=== PATIENT | male | born 1950 | race Caucasian/White ===

== ENCOUNTER 2017-06-29 22:54 | Inpatient (IN) ==
[2017-06-30] MEDS ORDERED: ONDANSETRON 4 MG/2 ML VIAL IV PRN (02:42)
[2017-06-30] MEDS ORDERED: GLUCAGON 1 MG VIAL IM PRN (02:42)
[2017-06-30] MEDS ORDERED: DEXTROSE 50% 25 GM/50 ML VIAL IV PRN (02:42)
[2017-06-30] MEDS ORDERED: ACETAMINOPHEN 325 MG TABLET PO PRN (02:42)
[2017-06-30 05:14] LABS: Basophils # 0.1 10*3/uL (0.0-0.2); Basophils % 0.6 % (0.0-0.8); Eosinophils # 0.3 10*3/uL (0.0-0.87); Eosinophils % 3.3 % (0.00-10.9); Hematocrit 41.5 VOL% (42.0-52.0); Hemoglobin 14.3 GM/DL (14.0-18.0); Immature Granulocytes % 0.4 %; Immature Granulocytes Absolute 0.04 #; Lymphocytes # 4.5 10*3/uL (1.4-4.0); Lymphocytes % 44.7 % (21.2-54.2); Mean Corpuscular HGB Conc 34.5 GM/DL (32-36); Mean Corpuscular Hemoglobin 33 PG (27-34); Mean Platelet Volume 11.8 FL (9.6-12.0); Monocytes # 0.9 10*3/uL (0.11-0.8); Monocytes % 8.7 % (1.7-12.7); Neutrophils # 4.3 10*3/uL (1.4-7.4); Neutrophils % 42.3 % (38.7-73.9); Platelet Count 164 T/CUMM (130-400); Red Blood Count 4.37 MC/CUMM (3.8-5.5); Red Cell Distribution Width 13.7 % (9.3-17.3); White Blood Count 10.1 T/CUMM (4-12)
[2017-06-30 05:54] LABS: Albumin 3.4 G/DL (3.4-5.0); Calcium 9.7 MG/DL (8.5-10.1); Osmolality,Calculated 280.4 MOS/KG (273-304); Potassium 3.9 MMOL/L (3.5-5.1); Total Protein 7.2 G/DL (6.4-8.3)
[2017-06-30] MEDS ORDERED: INSULIN LISPRO 100 UNIT/ML SUBCUT SCH (07:30)
[2017-06-30] MEDS ORDERED: PANTOPRAZOLE 40 MG TABLET PO SCH (09:00)
[2017-06-30] MEDS ORDERED: ENOXAPARIN 40 MG/0.4 ML SYRINGE SUBCUT SCH (09:00)
[2017-06-30] MEDS ORDERED: ASPIRIN CHEW 81 MG TABLET PO SCH (09:00)
[2017-06-30 10:03] VITALS: BP 161/71
== END 2017-06-30 10:50 | disposition home or self-care (01) | DRG 74 ==
LOC: N.CC 06-30 00:27
PROVIDERS: ADMIT Internal Medicine Geriatric Medicine; ATTEND Internal Medicine Geriatric Medicine

== ENCOUNTER 2018-07-25 21:28 | Inpatient (IN) ==
[2018-07-25] MEDS: dilTIAZem Drip 125 MG/125 ML PREMIX IV SCH ×2 (21:28→23:58)
[2018-07-25 22:08] LABS: Basophils # 0.1 10*3/uL (0.0-0.2); Basophils % 0.5 % (0.0-0.8); Eosinophils # 0.2 10*3/uL (0.0-0.87); Eosinophils % 1.6 % (0.00-10.9); Hematocrit 42.3 VOL% (42.0-52.0); Hemoglobin 14.3 GM/DL (14.0-18.0); Immature Granulocytes % 0.6 %; Immature Granulocytes Absolute 0.07 #; Lymphocytes # 3.2 10*3/uL (1.4-4.0); Lymphocytes % 28.1 % (21.2-54.2); Mean Corpuscular HGB Conc 33.8 GM/DL (32-36); Mean Corpuscular Hemoglobin 32 PG (27-34); Mean Platelet Volume 11.6 FL (9.6-12.0); Monocytes % 8.6 % (1.7-12.7); Neutrophils # 6.9 10*3/uL (1.4-7.4); Neutrophils % 60.6 % (38.7-73.9); Platelet Count 183 T/CUMM (130-400); Red Cell Distribution Width 13.9 % (9.3-17.3); White Blood Count 11.5 T/CUMM (4-12)
[2018-07-25 22:20] LABS: PT Patient Result 10.4 SECS
[2018-07-25 22:21] LABS: Albumin 3.6 G/DL (3.4-5.0); Bilirubin,Total 0.6 MG/DL (0.2-1.0); Calcium 9.2 MG/DL (8.5-10.1); Osmolality,Calculated 287.1 MOS/KG (273-304); Potassium 3.9 MMOL/L (3.5-5.1); Thyroid Stimulating Hormone 0.752 uIU/ml (0.358-3.74); Total Protein 8.2 G/DL (6.4-8.3)
[2018-07-25] MEDS ORDERED: ENOXAPARIN 80 MG/0.8 ML SYRINGE SUBCUT STA (22:30)
[2018-07-25 22:41] LABS: Barbiturates Screen,Urine Negative (Negative); Benzodiazepines Screen,Urine Negative (Negative); Cannabinoid Screen,Urine Negative (Negative); Opiate Screen,Urine Negative (Negative); Phencyclidine Screen,Urine Negative (Negative)
[2018-07-25] MEDS ORDERED: ONDANSETRON 4 MG/2 ML VIAL IV PRN (22:42)
[2018-07-25] MEDS ORDERED: CLOPIDOGREL 300 MG TABLET PO STA (22:46)
[2018-07-25] MEDS ORDERED: DEXTROSE 50% 25 GM/50 ML SYRINGE IV PRN (23:17)
[2018-07-25] MEDS ORDERED: GLUCAGON 1 MG VIAL IM PRN (23:17)
[2018-07-25 23:32] LABS: Risk Ratio 10.77; VLDL CHOLESTEROL 158.6 MG/DL
[2018-07-26] MEDS ORDERED: DEXTROSE 50% 25 GM/50 ML VIAL IV PRN (00:23)
[2018-07-26] MEDS ORDERED: GLUCAGON 1 MG VIAL IM PRN (00:23)
[2018-07-26 00:54] LABS: Basophils # 0.1 10*3/uL (0.0-0.2); Basophils % 0.6 % (0.0-0.8); Eosinophils # 0.2 10*3/uL (0.0-0.87); Eosinophils % 1.3 % (0.00-10.9); Hematocrit 41.9 VOL% (42.0-52.0); Hemoglobin 14.1 GM/DL (14.0-18.0); Immature Granulocytes % 0.8 %; Immature Granulocytes Absolute 0.09 #; Lymphocytes # 3.9 10*3/uL (1.4-4.0); Lymphocytes % 34.6 % (21.2-54.2); Mean Corpuscular HGB Conc 33.7 GM/DL (32-36); Mean Corpuscular Hemoglobin 32 PG (27-34); Mean Corpuscular Volume 94.2 FL (87-102); Mean Platelet Volume 11.4 FL (9.6-12.0); Monocytes # 1.1 10*3/uL (0.11-0.8); Monocytes % 9.7 % (1.7-12.7); Platelet Count 171 T/CUMM (130-400); Red Blood Count 4.45 MC/CUMM (3.8-5.5); Red Cell Distribution Width 13.9 % (9.3-17.3); White Blood Count 11.4 T/CUMM (4-12)
[2018-07-26 01:00] LABS: Albumin 3.4 G/DL (3.4-5.0); Bilirubin,Total 0.7 MG/DL (0.2-1.0); Calcium 9.3 MG/DL (8.5-10.1); Osmolality,Calculated 288.7 MOS/KG (273-304); Potassium 4.6 MMOL/L (3.5-5.1); Total Protein 8.1 G/DL (6.4-8.3)
[2018-07-26 01:36] LABS: Hepatitis A Ab IgM Result Negative (Negative); Hepatitis B Core IgM Quant < 0.05 Index; Hepatitis B Core IgM Result Negative (Negative); Hepatitis B Surface Ag Quant < 0.10 Index; Hepatitis B Surface Ag Result Negative (Negative); Hepatitis C Virus Ab Quant 0.03 Index; Hepatitis C Virus Ab Result Negative (Negative)
[2018-07-26] MEDS ORDERED: INSULIN LISPRO 100 UNIT/ML SUBCUT SCH (02:00)
[2018-07-26] MEDS: INSULIN LISPRO 100 UNIT/ML SUBCUT SCH ×4 (08:20→21:44)
[2018-07-26] MEDS: LOSARTAN 25 MG TABLET PO SCH (08:21)
[2018-07-26] MEDS: ISOSORBIDE MONONITRATE 30 MG TABLET PO SCH (08:21)
[2018-07-26] MEDS: ASPIRIN 325 MG TABLET PO SCH (08:21)
[2018-07-26] MEDS: DORZOLAMIDE/TIMOLOL OPH SOLN 10 ML BOTTLE BOTH EYES SCH ×2 (08:21→22:36)
[2018-07-26] MEDS: FUROSEMIDE 40 MG TABLET PO SCH (08:21)
[2018-07-26] MEDS: CHOLECALCIFEROL 1,000 UNIT TABLET PO SCH (08:21)
[2018-07-26] MEDS: clonazePAM 0.5 MG TABLET PO SCH (08:21)
[2018-07-26] MEDS: PANTOPRAZOLE 40 MG TABLET PO SCH (08:21)
[2018-07-26] MEDS: METOPROLOL SUCCINATE XL 25 MG TABLET PO SCH ×2 (08:21→21:43)
[2018-07-26] MEDS: ROSUVASTATIN 20 MG TABLET PO SCH (08:21)
[2018-07-26] MEDS: CLOPIDOGREL 75 MG TABLET PO SCH (08:21)
[2018-07-26] MEDS: THIAMINE 100 MG TABLET PO SCH (08:21)
[2018-07-26] MEDS ORDERED: DOXEPIN HCL PO SCH (09:00)
[2018-07-26] MEDS ORDERED: ENOXAPARIN 80 MG/0.8 ML SYRINGE SUBCUT SCH (11:00)
[2018-07-26 11:55] LABS: CKMB % 15.5 %
[2018-07-26] MEDS ORDERED: MAGNESIUM SULF RIDER 2 GM in PREMIX 1 EACH IV PRN (13:05)
[2018-07-26] MEDS ORDERED: POTASSIUM CHLORIDE RIDER 10 MEQ in PREMIX 1 EACH IV PRN (13:05)
[2018-07-26] MEDS: FOLIC ACID 1 MG TABLET PO SCH (13:09)
[2018-07-26] MEDS ORDERED: LORazepam 1 MG TABLET PO ONE (21:02)
[2018-07-26] MEDS: DOXEPIN 25 MG CAPSULE PO SCH (21:43)
[2018-07-26] MEDS: INSULIN GLARGINE 100 UNIT/ML SUBCUT SCH (21:44)
[2018-07-26] MEDS: GABAPENTIN 300 MG CAPSULE PO SCH (21:48)
[2018-07-26] MEDS: LATANOPROST 0.005% OPH SOLN 2.5 ML BOTTLE BOTH EYES SCH (22:36)
[2018-07-27] MEDS: INSULIN LISPRO 100 UNIT/ML SUBCUT SCH ×6 (00:53→20:29)
[2018-07-27 05:06] LABS: Basophils # 0.1 10*3/uL (0.0-0.2); Basophils % 0.8 % (0.0-0.8); Eosinophils # 0.3 10*3/uL (0.0-0.87); Eosinophils % 4.2 % (0.00-10.9); Hemoglobin 13.3 GM/DL (14.0-18.0); Immature Granulocytes % 0.3 %; Immature Granulocytes Absolute 0.02 #; Lymphocytes % 51.1 % (21.2-54.2); Mean Corpuscular HGB Conc 34.1 GM/DL (32-36); Mean Corpuscular Hemoglobin 32 PG (27-34); Mean Corpuscular Volume 93.1 FL (87-102); Mean Platelet Volume 11.3 FL (9.6-12.0); Monocytes # 0.9 10*3/uL (0.11-0.8); Monocytes % 11.3 % (1.7-12.7); Neutrophils # 2.5 10*3/uL (1.4-7.4); Neutrophils % 32.3 % (38.7-73.9); Platelet Count 149 T/CUMM (130-400); Red Blood Count 4.19 MC/CUMM (3.8-5.5); Red Cell Distribution Width 13.9 % (9.3-17.3); White Blood Count 7.8 T/CUMM (4-12)
[2018-07-27 05:25] LABS: Calcium 8.7 MG/DL (8.5-10.1); Osmolality,Calculated 281.5 MOS/KG (273-304); Potassium 3.6 MMOL/L (3.5-5.1)
[2018-07-27] MEDS ORDERED: SODIUM CHLORIDE 0.9% 1,000 ML IV SCH (06:00)
[2018-07-27 06:22] LABS: Eosinophils 5 % (0-10); Hypochromasia 1+; Lymphocytes 39 % (20-55); Platelet Estimate Normal; Segmented Neutrophils 52 % (50-85); Total Cells Counted 100
[2018-07-27] MEDS: ISOSORBIDE MONONITRATE 30 MG TABLET PO SCH (09:24)
[2018-07-27] MEDS: METOPROLOL SUCCINATE XL 25 MG TABLET PO SCH ×2 (09:24→20:29)
[2018-07-27] MEDS: LOSARTAN 25 MG TABLET PO SCH (09:26)
[2018-07-27] MEDS ORDERED: diphenhydrAMINE CAP 25 MG CAPSULE PO ONE (10:00)
[2018-07-27] MEDS ORDERED: DIAZEPAM 5 MG TABLET PO ONE (10:00)
[2018-07-27] MEDS ORDERED: HEPARIN/NACL 0.9% 2 UNITS/ML 1,000 ML IV ONE (11:03)
[2018-07-27] MEDS ORDERED: LIDOCAINE 1% 20 ML VIAL ONE (11:03)
[2018-07-27] MEDS ORDERED: MIDAZOLAM 2 MG/2 ML VIAL ONE ×2 (11:45→12:24)
[2018-07-27] MEDS ORDERED: HYDROmorphone 2 MG/1 ML VIAL ONE ×2 (11:45→12:24)
[2018-07-27] MEDS ORDERED: diphenhydrAMINE 50 MG/1 ML VIAL ONE (12:26)
[2018-07-27] MEDS ORDERED: BIVALIRUDIN 250 MG VIAL IV ONE (13:12)
[2018-07-27] MEDS ORDERED: CLOPIDOGREL 300 MG TABLET ONE (13:30)
[2018-07-27] MEDS ORDERED: ASPIRIN CHEW 81 MG TABLET PO ONE (13:30)
[2018-07-27] MEDS ORDERED: ceFAZolin 1,000 MG VIAL ONE (13:37)
[2018-07-27] MEDS ORDERED: ZALEPLON 5 MG CAPSULE PO PRN (13:40)
[2018-07-27] MEDS ORDERED: LORazepam 2 MG/1 ML VIAL ONE (14:05)
[2018-07-27] MEDS ORDERED: LORazepam 2 MG/1 ML VIAL IV ONE (14:10)
[2018-07-27] MEDS ORDERED: CLOPIDOGREL 300 MG TABLET PO ONE (14:11)
[2018-07-27] MEDS: CLOPIDOGREL 75 MG TABLET PO SCH (14:38)
[2018-07-27] MEDS: ASPIRIN 325 MG TABLET PO SCH (14:39)
[2018-07-27] MEDS ORDERED: HALOPERIDOL 5 MG/ML AMP IM PRN (15:00)
[2018-07-27] MEDS: HALOPERIDOL 5 MG/ML AMP IV PRN (15:13)
[2018-07-27] MEDS: DORZOLAMIDE/TIMOLOL OPH SOLN 10 ML BOTTLE BOTH EYES SCH ×2 (15:48→20:36)
[2018-07-27] MEDS: ROSUVASTATIN 20 MG TABLET PO SCH (15:48)
[2018-07-27] MEDS: clonazePAM 0.5 MG TABLET PO SCH (15:49)
[2018-07-27] MEDS: FOLIC ACID 1 MG TABLET PO SCH (15:49)
[2018-07-27] MEDS: THIAMINE 100 MG TABLET PO SCH (15:53)
[2018-07-27] MEDS: DOXEPIN 25 MG CAPSULE PO SCH ×2 (15:53→20:28)
[2018-07-27] MEDS: PANTOPRAZOLE 40 MG TABLET PO SCH (15:53)
[2018-07-27] MEDS: FUROSEMIDE 40 MG TABLET PO SCH (15:53)
[2018-07-27] MEDS: ASPIRIN CHEW 81 MG TABLET PO ONE ×2 (15:54→17:37)
[2018-07-27] MEDS: CHOLECALCIFEROL 1,000 UNIT TABLET PO SCH (15:54)
[2018-07-27] MEDS: LATANOPROST 0.005% OPH SOLN 2.5 ML BOTTLE BOTH EYES SCH (20:29)
[2018-07-27] MEDS: INSULIN GLARGINE 100 UNIT/ML SUBCUT SCH (20:29)
[2018-07-27] MEDS: GABAPENTIN 300 MG CAPSULE PO SCH (20:32)
[2018-07-27] MEDS ORDERED: ALBUTEROL/IPRATROPIUM 3 ML NEB RESP TX PRN (20:58)
[2018-07-28] MEDS: INSULIN LISPRO 100 UNIT/ML SUBCUT SCH ×7 (00:45→23:30)
[2018-07-28 00:55] LABS: Allen Test Positive
[2018-07-28 00:57] LABS: ABG Base Excess -1.3 MMOL/L (-2.5-2.5); ABG HCO3 23.3 MMOL/L (20-26); ABG Oxygen Saturation 96.8 % (95-100); ABG PCO2 40.8 MM HG (35-48); ABG PH 7.374 (7.35-7.45); ABG PO2 89.2 MM HG (80-95); ABG TCO2 21.1 MMOL/L (23-27)
[2018-07-28] MEDS: HALOPERIDOL 5 MG/ML AMP IV PRN (01:17)
[2018-07-28 04:30] LABS: Basophils % 0.4 % (0.0-0.8); Eosinophils # 0.4 10*3/uL (0.0-0.87); Eosinophils % 3.3 % (0.00-10.9); Hematocrit 34.7 VOL% (42.0-52.0); Hemoglobin 11.6 GM/DL (14.0-18.0); Immature Granulocytes % 0.4 %; Immature Granulocytes Absolute 0.05 #; Lymphocytes # 2.9 10*3/uL (1.4-4.0); Lymphocytes % 25.6 % (21.2-54.2); Mean Corpuscular HGB Conc 33.4 GM/DL (32-36); Mean Corpuscular Hemoglobin 31 PG (27-34); Mean Platelet Volume 11.7 FL (9.6-12.0); Monocytes # 0.9 10*3/uL (0.11-0.8); Monocytes % 7.8 % (1.7-12.7); Neutrophils # 7.1 10*3/uL (1.4-7.4); Neutrophils % 62.5 % (38.7-73.9); Platelet Count 138 T/CUMM (130-400); Red Blood Count 3.77 MC/CUMM (3.8-5.5); Red Cell Distribution Width 13.9 % (9.3-17.3); White Blood Count 11.4 T/CUMM (4-12)
[2018-07-28 04:53] LABS: Albumin 3.4 G/DL (3.4-5.0); Bilirubin,Total 1.2 MG/DL (0.2-1.0); Calcium 8.9 MG/DL (8.5-10.1); Osmolality,Calculated 278.4 MOS/KG (273-304); Potassium 3.7 MMOL/L (3.5-5.1); Total Protein 7.3 G/DL (6.4-8.3)
[2018-07-28 05:05] LABS: CKMB % 5.1 %; Calcium 8.8 MG/DL (8.5-10.1); Osmolality,Calculated 280.3 MOS/KG (273-304); Potassium 3.7 MMOL/L (3.5-5.1)
[2018-07-28 05:18] LABS: Troponin I 11.2 NG/ML (0.00-0.045)
[2018-07-28] MEDS ORDERED: NITROGLYCERIN SL 0.4 MG TABLET SL PRN (06:09)
[2018-07-28] MEDS ORDERED: ASPIRIN CHEW 81 MG TABLET PO ONE (06:09)
[2018-07-28] MEDS ORDERED: MORPHINE 4 MG/1 ML VIAL IV PRN (06:09)
[2018-07-28] MEDS ORDERED: DILTIAZEM 25 MG/5 ML VIAL IV ONE ×2 (06:16→06:18)
[2018-07-28] MEDS ORDERED: LORazepam 2 MG/1 ML VIAL IV ONE ×2 (06:26→06:47)
[2018-07-28] MEDS ORDERED: dilTIAZem Drip 125 MG/125 ML PREMIX IV SCH (06:30)
[2018-07-28] MEDS: MORPHINE 4 MG/1 ML VIAL IV SCH ×2 (06:35→11:43)
[2018-07-28 06:47] LABS: ABG Base Excess -4.2 MMOL/L (-2.5-2.5); ABG HCO3 20.9 MMOL/L (20-26); ABG Oxygen Saturation 95.3 % (95-100); ABG PCO2 36.9 MM HG (35-48); ABG PH 7.357 (7.35-7.45); ABG PO2 80.6 MM HG (80-95)
[2018-07-28] MEDS ORDERED: SUCCINYLCHOLINE 200 MG/10 ML VIAL ONE (06:56)
[2018-07-28] MEDS ORDERED: ETOMIDATE 20 MG/10 ML VIAL IV ONE (06:56)
[2018-07-28] MEDS ORDERED: PROPOFOL 1,000 MG/100 ML BOTTLE IV ONE (07:11)
[2018-07-28] MEDS: PROPOFOL 1,000 MG/100 ML BOTTLE IV SCH ×3 (07:25→21:04)
[2018-07-28] MEDS ORDERED: POTASSIUM CHLORIDE 20 MEQ TABLET PO PRN (07:43)
[2018-07-28] MEDS ORDERED: POTASSIUM CHLORIDE RIDER 10 MEQ in PREMIX 1 EACH IV PRN (07:43)
[2018-07-28] MEDS ORDERED: MAGNESIUM SULF RIDER 2 GM in PREMIX 1 EACH IV ONE (07:45)
[2018-07-28] MEDS ORDERED: FUROSEMIDE 40 MG/4 ML VIAL IV SCH (08:00)
[2018-07-28] MEDS ORDERED: NOREPINEPHRINE 8 MG in SODIUM CHLORIDE 0.9% 242 ML IV PRN (08:16)
[2018-07-28 08:23] LABS: Apearance,Urine Slightly Hazy (Clear); Bilirubin,Urine Negative (Negative); Blood, Urine Small mg/dL (Negative); Glucose,Urine (UA) Negative (Negative); Hyaline Casts,Urine 7 /LPF (0-3); Ketones,Urine Negative (Negative); Mucus,Urine Occasional /LPF (Occasional); Nitrite,Urine Negative (Negative); Protein,Urine 100 MG/DL; RBC,Urine 1 /HPF (0-4); Squamous Epithelial Cell,Urine Occasional /HPF (0-10); Urine Color Yellow (Yellow); Urine Specific Gravity 1.012 (1.001-1.035); Urine Urobilinogen < 2.0 EU/DL (0.2-1.0); WBC,Urine 5 /HPF (0-6)
[2018-07-28 08:25] LABS: ABG Base Excess -4.4 MMOL/L (-2.5-2.5); ABG HCO3 20.7 MMOL/L (20-26); ABG Oxygen Saturation 96.6 % (95-100); ABG PH 7.272 (7.35-7.45); ABG TCO2 20.5 MMOL/L (23-27)
[2018-07-28] MEDS: LORazepam INJ 40 MG in DEXTROSE 5% 30 ML IV PRN (08:35)
[2018-07-28 08:50] LABS: Barbiturates Screen,Urine Negative (Negative); Benzodiazepines Screen,Urine Positive (Negative); Cannabinoid Screen,Urine Negative (Negative); Opiate Screen,Urine Positive (Negative); Phencyclidine Screen,Urine Negative (Negative)
[2018-07-28] MEDS: PIPERACILLIN/TAZOBACTAM 3,375 MG in SODIUM CHLORIDE 0.9% 100 ML IV SCH ×3 (10:13→23:30)
[2018-07-28] MEDS: methylPREDNISolone SOD SUC 125 MG/2 ML VIAL IV SCH ×3 (10:14→23:29)
[2018-07-28] MEDS: THIAMINE 200 MG/2 ML VIAL IV SCH (10:14)
[2018-07-28] MEDS: ASPIRIN 325 MG TABLET PO SCH (10:15)
[2018-07-28] MEDS: PANTOPRAZOLE 40 MG TABLET PO SCH (10:15)
[2018-07-28] MEDS: CHOLECALCIFEROL 1,000 UNIT TABLET PO SCH (10:15)
[2018-07-28] MEDS: ROSUVASTATIN 20 MG TABLET PO SCH (10:15)
[2018-07-28] MEDS: CLOPIDOGREL 75 MG TABLET PO SCH (10:15)
[2018-07-28] MEDS: METOPROLOL TARTRATE 25 MG TABLET PO SCH ×2 (10:16→21:02)
[2018-07-28] MEDS: FOLIC ACID 1 MG TABLET PO SCH (10:16)
[2018-07-28] MEDS: DORZOLAMIDE/TIMOLOL OPH SOLN 10 ML BOTTLE BOTH EYES SCH ×2 (10:16→21:30)
[2018-07-28] MEDS: ISOSORBIDE MONONITRATE 30 MG TABLET PO SCH (10:16)
[2018-07-28] MEDS: FOLIC ACID INJ 1 MG in SYRINGE 1 EACH IV SCH (11:48)
[2018-07-28] MEDS: DILTIAZEM 30 MG TABLET PO SCH ×2 (15:14→21:02)
[2018-07-28] MEDS: FUROSEMIDE 20 MG/2 ML VIAL IV SCH (16:23)
[2018-07-28] MEDS: LATANOPROST 0.005% OPH SOLN 2.5 ML BOTTLE BOTH EYES SCH (21:02)
[2018-07-28] MEDS: ALBUTEROL/IPRATROPIUM 3 ML NEB RESP TX SCH (23:44)
[2018-07-29] MEDS: PROPOFOL 1,000 MG/100 ML BOTTLE IV SCH ×4 (03:07→19:15)
[2018-07-29 03:47] LABS: Basophils % 0.1 % (0.0-0.8); Hematocrit 33.4 VOL% (42.0-52.0); Hemoglobin 11.3 GM/DL (14.0-18.0); Immature Granulocytes % 0.5 %; Immature Granulocytes Absolute 0.05 #; Lymphocytes # 1.3 10*3/uL (1.4-4.0); Mean Corpuscular HGB Conc 33.8 GM/DL (32-36); Mean Corpuscular Hemoglobin 31 PG (27-34); Mean Corpuscular Volume 92.5 FL (87-102); Mean Platelet Volume 11.9 FL (9.6-12.0); Monocytes # 0.5 10*3/uL (0.11-0.8); Monocytes % 4.1 % (1.7-12.7); Neutrophils # 9.2 10*3/uL (1.4-7.4); Neutrophils % 83.3 % (38.7-73.9); Platelet Count 125 T/CUMM (130-400); Red Blood Count 3.61 MC/CUMM (3.8-5.5); Red Cell Distribution Width 13.9 % (9.3-17.3)
[2018-07-29 04:11] LABS: Albumin 2.9 G/DL (3.4-5.0); Calcium 8.7 MG/DL (8.5-10.1); Osmolality,Calculated 290.4 MOS/KG (273-304); Potassium 3.8 MMOL/L (3.5-5.1); Total Protein 6.9 G/DL (6.4-8.3)
[2018-07-29 04:12] LABS: Prealbumin 12.5 MG/DL (20-40)
[2018-07-29 04:23] LABS: Allen Test Positive; Pt O2 Delivery Device Ventilator
[2018-07-29 04:24] LABS: ABG Base Excess -1.7 MMOL/L (-2.5-2.5); ABG Oxygen Saturation 99.4 % (95-100); ABG PCO2 35.5 MM HG (35-48); ABG PH 7.409 (7.35-7.45); ABG TCO2 19.6 MMOL/L (23-27)
[2018-07-29] MEDS: INSULIN LISPRO 100 UNIT/ML SUBCUT SCH ×4 (04:54→16:48)
[2018-07-29] MEDS: LORazepam INJ 40 MG in DEXTROSE 5% 30 ML IV PRN ×2 (05:10→15:48)
[2018-07-29] MEDS: ALBUTEROL/IPRATROPIUM 3 ML NEB RESP TX SCH ×3 (07:51→19:11)
[2018-07-29] MEDS: FUROSEMIDE 20 MG/2 ML VIAL IV SCH ×2 (09:53→16:49)
[2018-07-29] MEDS: methylPREDNISolone SOD SUC 125 MG/2 ML VIAL IV SCH ×2 (09:55→16:52)
[2018-07-29] MEDS: PIPERACILLIN/TAZOBACTAM 3,375 MG in SODIUM CHLORIDE 0.9% 100 ML IV SCH ×2 (09:56→16:53)
[2018-07-29] MEDS: THIAMINE 200 MG/2 ML VIAL IV SCH (09:58)
[2018-07-29] MEDS: DORZOLAMIDE/TIMOLOL OPH SOLN 10 ML BOTTLE BOTH EYES SCH ×2 (09:58→22:43)
[2018-07-29] MEDS: FOLIC ACID INJ 1 MG in SYRINGE 1 EACH IV SCH (09:59)
[2018-07-29] MEDS: CHOLECALCIFEROL 1,000 UNIT TABLET PO SCH (10:17)
[2018-07-29] MEDS: PANTOPRAZOLE 40 MG TABLET PO SCH (10:18)
[2018-07-29] MEDS: FOLIC ACID 1 MG TABLET PO SCH (10:18)
[2018-07-29] MEDS: METOPROLOL TARTRATE 25 MG TABLET PO SCH ×2 (10:18→22:43)
[2018-07-29] MEDS: CLOPIDOGREL 75 MG TABLET PO SCH (10:18)
[2018-07-29] MEDS: ASPIRIN EC 81 MG TABLET PO SCH (10:18)
[2018-07-29] MEDS: DILTIAZEM 30 MG TABLET PO SCH ×3 (10:18→22:43)
[2018-07-29] MEDS ORDERED: INSULIN NPH 100 UNIT/ML SUBCUT SCH (13:00)
[2018-07-29] MEDS ORDERED: INSULIN REGULAR 100 UNIT/ML IV ONE (18:01)
[2018-07-29] MEDS: INSULIN REGULAR 100 UNIT/ML SUBCUT SCH (22:42)
[2018-07-29] MEDS: INSULIN GLARGINE 100 UNIT/ML SUBCUT SCH (22:43)
[2018-07-29] MEDS: LATANOPROST 0.005% OPH SOLN 2.5 ML BOTTLE BOTH EYES SCH (22:44)
[2018-07-30] MEDS: methylPREDNISolone SOD SUC 125 MG/2 ML VIAL IV SCH ×3 (00:28→18:47)
[2018-07-30] MEDS: PIPERACILLIN/TAZOBACTAM 3,375 MG in SODIUM CHLORIDE 0.9% 100 ML IV SCH ×3 (00:30→18:47)
[2018-07-30] MEDS: INSULIN REGULAR 100 UNIT/ML SUBCUT SCH ×6 (00:31→20:35)
[2018-07-30] MEDS: PROPOFOL 1,000 MG/100 ML BOTTLE IV SCH ×3 (02:03→23:54)
[2018-07-30 03:51] LABS: Allen Test Positive; Pt O2 Delivery Device Ventilator
[2018-07-30 03:54] LABS: ABG Base Excess 2.5 MMOL/L (-2.5-2.5); ABG HCO3 25.4 MMOL/L (20-26); ABG PCO2 34.2 MM HG (35-48); ABG PH 7.489 (7.35-7.45); ABG PO2 121.3 MM HG (80-95); ABG TCO2 26.5 MMOL/L (23-27)
[2018-07-30 03:55] LABS: ABG Oxygen Saturation 98.7 % (95-100)
[2018-07-30 04:40] LABS: Basophils % 0.1 % (0.0-0.8); Hematocrit 33.6 VOL% (42.0-52.0); Hemoglobin 11.2 GM/DL (14.0-18.0); Immature Granulocytes % 0.6 %; Lymphocytes # 1.3 10*3/uL (1.4-4.0); Lymphocytes % 8.5 % (21.2-54.2); Mean Corpuscular HGB Conc 33.3 GM/DL (32-36); Mean Corpuscular Hemoglobin 31 PG (27-34); Mean Corpuscular Volume 93.6 FL (87-102); Mean Platelet Volume 12.4 FL (9.6-12.0); Monocytes # 0.8 10*3/uL (0.11-0.8); Monocytes % 5.4 % (1.7-12.7); Neutrophils # 13.2 10*3/uL (1.4-7.4); Neutrophils % 85.4 % (38.7-73.9); Platelet Count 129 T/CUMM (130-400); Red Blood Count 3.59 MC/CUMM (3.8-5.5); Red Cell Distribution Width 14.1 % (9.3-17.3); White Blood Count 15.5 T/CUMM (4-12)
[2018-07-30 04:57] LABS: Albumin 2.8 G/DL (3.4-5.0); Bilirubin,Total 0.7 MG/DL (0.2-1.0); Calcium 8.9 MG/DL (8.5-10.1); Osmolality,Calculated 298.1 MOS/KG (273-304); Potassium 3.8 MMOL/L (3.5-5.1); Total Protein 7.2 G/DL (6.4-8.3)
[2018-07-30] MEDS: ALBUTEROL/IPRATROPIUM 3 ML NEB RESP TX SCH ×3 (08:00→19:16)
[2018-07-30] MEDS: FUROSEMIDE 20 MG/2 ML VIAL IV SCH ×2 (10:02→18:49)
[2018-07-30] MEDS: THIAMINE 200 MG/2 ML VIAL IV SCH (10:08)
[2018-07-30] MEDS: FOLIC ACID INJ 1 MG in SYRINGE 1 EACH IV SCH (10:09)
[2018-07-30] MEDS: PANTOPRAZOLE 40 MG TABLET PO SCH (10:19)
[2018-07-30] MEDS: FOLIC ACID 1 MG TABLET PO SCH (10:19)
[2018-07-30] MEDS: METOPROLOL TARTRATE 25 MG TABLET PO SCH ×2 (10:19→22:35)
[2018-07-30] MEDS: CLOPIDOGREL 75 MG TABLET PO SCH (10:19)
[2018-07-30] MEDS: ASPIRIN EC 81 MG TABLET PO SCH (10:19)
[2018-07-30] MEDS: CHOLECALCIFEROL 1,000 UNIT TABLET PO SCH (10:20)
[2018-07-30] MEDS: DILTIAZEM 30 MG TABLET PO SCH ×3 (10:21→22:34)
[2018-07-30] MEDS: DORZOLAMIDE/TIMOLOL OPH SOLN 10 ML BOTTLE BOTH EYES SCH ×2 (12:39→22:34)
[2018-07-30] MEDS: INSULIN GLARGINE 100 UNIT/ML SUBCUT SCH (22:34)
[2018-07-30] MEDS: LATANOPROST 0.005% OPH SOLN 2.5 ML BOTTLE BOTH EYES SCH (22:35)
[2018-07-31] MEDS: methylPREDNISolone SOD SUC 125 MG/2 ML VIAL IV SCH ×3 (01:22→16:26)
[2018-07-31] MEDS: INSULIN REGULAR 100 UNIT/ML SUBCUT SCH ×6 (01:22→19:42)
[2018-07-31] MEDS: PIPERACILLIN/TAZOBACTAM 3,375 MG in SODIUM CHLORIDE 0.9% 100 ML IV SCH ×3 (01:23→16:30)
[2018-07-31 03:32] LABS: Hematocrit 32.6 VOL% (42.0-52.0); Hemoglobin 10.6 GM/DL (14.0-18.0); Immature Granulocytes % 0.9 %; Immature Granulocytes Absolute 0.11 #; Lymphocytes # 1.2 10*3/uL (1.4-4.0); Lymphocytes % 9.1 % (21.2-54.2); Mean Corpuscular HGB Conc 32.5 GM/DL (32-36); Mean Corpuscular Hemoglobin 31 PG (27-34); Mean Corpuscular Volume 95.6 FL (87-102); Mean Platelet Volume 12.2 FL (9.6-12.0); Monocytes # 0.7 10*3/uL (0.11-0.8); Monocytes % 5.1 % (1.7-12.7); Neutrophils # 10.7 10*3/uL (1.4-7.4); Neutrophils % 84.9 % (38.7-73.9); Platelet Count 134 T/CUMM (130-400); Red Blood Count 3.41 MC/CUMM (3.8-5.5); Red Cell Distribution Width 14.4 % (9.3-17.3); White Blood Count 12.6 T/CUMM (4-12)
[2018-07-31 03:38] LABS: Allen Test Positive; Pt O2 Delivery Device Ventilator
[2018-07-31 03:39] LABS: ABG Base Excess 5.6 MMOL/L (-2.5-2.5); ABG HCO3 29.5 MMOL/L (20-26); ABG Oxygen Saturation 96.2 % (95-100); ABG PCO2 39.8 MM HG (35-48); ABG PH 7.479 (7.35-7.45); ABG TCO2 26.2 MMOL/L (23-27)
[2018-07-31 03:58] LABS: Calcium 8.7 MG/DL (8.5-10.1); Osmolality,Calculated 300.1 MOS/KG (273-304); Potassium 3.7 MMOL/L (3.5-5.1)
[2018-07-31] MEDS: PROPOFOL 1,000 MG/100 ML BOTTLE IV SCH ×5 (06:38→23:36)
[2018-07-31] MEDS: ALBUTEROL/IPRATROPIUM 3 ML NEB RESP TX SCH ×3 (07:22→19:58)
[2018-07-31] MEDS: LORazepam INJ 40 MG in DEXTROSE 5% 30 ML IV PRN (07:51)
[2018-07-31] MEDS: HALOPERIDOL 5 MG/ML AMP IV SCH ×3 (07:52→19:30)
[2018-07-31] MEDS: FUROSEMIDE 20 MG/2 ML VIAL IV SCH ×2 (07:57→16:28)
[2018-07-31] MEDS: ASPIRIN EC 81 MG TABLET PO SCH (09:06)
[2018-07-31] MEDS: FOLIC ACID 1 MG TABLET PO SCH (09:06)
[2018-07-31] MEDS: METOPROLOL TARTRATE 25 MG TABLET PO SCH ×2 (09:06→20:17)
[2018-07-31] MEDS: CHOLECALCIFEROL 1,000 UNIT TABLET PO SCH (09:08)
[2018-07-31] MEDS: DILTIAZEM 30 MG TABLET PO SCH ×3 (09:08→20:17)
[2018-07-31] MEDS: PANTOPRAZOLE 40 MG TABLET PO SCH (09:08)
[2018-07-31] MEDS: CLOPIDOGREL 75 MG TABLET PO SCH (09:08)
[2018-07-31] MEDS: DORZOLAMIDE/TIMOLOL OPH SOLN 10 ML BOTTLE BOTH EYES SCH ×3 (09:08→20:22)
[2018-07-31] MEDS: FOLIC ACID INJ 1 MG in SYRINGE 1 EACH IV SCH (09:09)
[2018-07-31] MEDS: THIAMINE 200 MG/2 ML VIAL IV SCH (09:10)
[2018-07-31] MEDS: LATANOPROST 0.005% OPH SOLN 2.5 ML BOTTLE BOTH EYES SCH (20:19)
[2018-07-31] MEDS: INSULIN GLARGINE 100 UNIT/ML SUBCUT SCH (21:49)
[2018-08-01] MEDS: MIDAZOLAM 100 MG in SODIUM CHLORIDE 0.9% 80 ML IV PRN (01:20)
[2018-08-01] MEDS: INSULIN REGULAR 100 UNIT/ML SUBCUT SCH ×6 (01:30→19:55)
[2018-08-01] MEDS: methylPREDNISolone SOD SUC 125 MG/2 ML VIAL IV SCH ×3 (01:30→16:48)
[2018-08-01] MEDS: HALOPERIDOL 5 MG/ML AMP IV SCH ×4 (01:31→19:56)
[2018-08-01] MEDS: PIPERACILLIN/TAZOBACTAM 3,375 MG in SODIUM CHLORIDE 0.9% 100 ML IV SCH ×3 (01:31→16:48)
[2018-08-01 03:45] LABS: ABG HCO3 31.8 MMOL/L (20-26); ABG Oxygen Saturation 96.7 % (95-100); ABG PCO2 43.6 MM HG (35-48); ABG PH 7.482 (7.35-7.45); ABG TCO2 27.5 MMOL/L (23-27); Allen Test Positive; Pt O2 Delivery Device Ventilator
[2018-08-01 04:04] LABS: Basophils % 0.1 % (0.0-0.8); Hemoglobin 11.3 GM/DL (14.0-18.0); Immature Granulocytes % 2.2 %; Immature Granulocytes Absolute 0.25 #; Lymphocytes # 1.2 10*3/uL (1.4-4.0); Lymphocytes % 10.1 % (21.2-54.2); Mean Corpuscular HGB Conc 32.3 GM/DL (32-36); Mean Corpuscular Hemoglobin 31 PG (27-34); Mean Corpuscular Volume 96.2 FL (87-102); Monocytes # 1.1 10*3/uL (0.11-0.8); Monocytes % 9.5 % (1.7-12.7); Neutrophils # 8.9 10*3/uL (1.4-7.4); Neutrophils % 78.1 % (38.7-73.9); Platelet Count 154 T/CUMM (130-400); Red Blood Count 3.64 MC/CUMM (3.8-5.5); Red Cell Distribution Width 14.2 % (9.3-17.3); White Blood Count 11.3 T/CUMM (4-12)
[2018-08-01 04:20] LABS: Calcium 8.6 MG/DL (8.5-10.1); Osmolality,Calculated 307.6 MOS/KG (273-304); Potassium 3.9 MMOL/L (3.5-5.1)
[2018-08-01 04:24] LABS: Prealbumin 22.4 MG/DL (20-40)
[2018-08-01] MEDS: ALBUTEROL/IPRATROPIUM 3 ML NEB RESP TX SCH ×3 (06:59→20:02)
[2018-08-01] MEDS: THIAMINE 200 MG/2 ML VIAL IV SCH (08:10)
[2018-08-01] MEDS: FUROSEMIDE 20 MG/2 ML VIAL IV SCH ×2 (08:13→16:47)
[2018-08-01] MEDS: LOSARTAN 50 MG TABLET PO SCH (08:24)
[2018-08-01] MEDS: CHOLECALCIFEROL 1,000 UNIT TABLET PO SCH (08:24)
[2018-08-01] MEDS: ASPIRIN EC 81 MG TABLET PO SCH (08:24)
[2018-08-01] MEDS: FOLIC ACID 1 MG TABLET PO SCH (08:25)
[2018-08-01] MEDS: CLOPIDOGREL 75 MG TABLET PO SCH (08:25)
[2018-08-01] MEDS: DILTIAZEM 30 MG TABLET PO SCH ×3 (08:25→21:00)
[2018-08-01] MEDS: METOPROLOL TARTRATE 25 MG TABLET PO SCH ×2 (08:25→21:07)
[2018-08-01] MEDS: POTASSIUM CHLORIDE 20 MEQ/15 ML UDCUP PER TUBE PRN (08:32)
[2018-08-01] MEDS: FOLIC ACID INJ 1 MG in SYRINGE 1 EACH IV SCH (08:33)
[2018-08-01] MEDS: PANTOPRAZOLE 40 MG TABLET PO SCH (08:43)
[2018-08-01] MEDS ORDERED: MIDAZOLAM 2 MG/2 ML VIAL ONE (09:00)
[2018-08-01] MEDS: PROPOFOL 1,000 MG/100 ML BOTTLE IV SCH ×2 (11:26→22:26)
[2018-08-01] MEDS: DORZOLAMIDE/TIMOLOL OPH SOLN 10 ML BOTTLE BOTH EYES SCH ×2 (11:27→21:16)
[2018-08-01] MEDS: LANSOPRAZOLE ODT 30 MG TABLET PER TUBE SCH (11:45)
[2018-08-01] MEDS: LATANOPROST 0.005% OPH SOLN 2.5 ML BOTTLE BOTH EYES SCH (21:00)
[2018-08-01] MEDS: INSULIN GLARGINE 100 UNIT/ML SUBCUT SCH (21:01)
[2018-08-02] MEDS: INSULIN REGULAR 100 UNIT/ML SUBCUT SCH ×6 (00:41→19:59)
[2018-08-02] MEDS: methylPREDNISolone SOD SUC 125 MG/2 ML VIAL IV SCH ×3 (00:41→20:20)
[2018-08-02] MEDS: PIPERACILLIN/TAZOBACTAM 3,375 MG in SODIUM CHLORIDE 0.9% 100 ML IV SCH ×3 (00:42→15:50)
[2018-08-02] MEDS: HALOPERIDOL 5 MG/ML AMP IV SCH ×4 (00:48→19:59)
[2018-08-02] MEDS: MIDAZOLAM 100 MG in SODIUM CHLORIDE 0.9% 80 ML IV PRN (02:44)
[2018-08-02 04:58] LABS: ABG Base Excess 7.1 MMOL/L (-2.5-2.5); ABG HCO3 30.9 MMOL/L (20-26); ABG Oxygen Saturation 98.2 % (95-100); ABG PCO2 43.6 MM HG (35-48); ABG TCO2 27.5 MMOL/L (23-27)
[2018-08-02 05:08] LABS: Basophils % 0.1 % (0.0-0.8); Hematocrit 37.7 VOL% (42.0-52.0); Hemoglobin 12.3 GM/DL (14.0-18.0); Immature Granulocytes % 1.4 %; Immature Granulocytes Absolute 0.16 #; Lymphocytes # 1.1 10*3/uL (1.4-4.0); Lymphocytes % 9.2 % (21.2-54.2); Mean Corpuscular HGB Conc 32.6 GM/DL (32-36); Mean Corpuscular Hemoglobin 31 PG (27-34); Mean Corpuscular Volume 95.7 FL (87-102); Mean Platelet Volume 11.9 FL (9.6-12.0); Monocytes # 0.8 10*3/uL (0.11-0.8); Monocytes % 7.3 % (1.7-12.7); Neutrophils # 9.4 10*3/uL (1.4-7.4); Platelet Count 154 T/CUMM (130-400); Red Blood Count 3.94 MC/CUMM (3.8-5.5); Red Cell Distribution Width 14.1 % (9.3-17.3); White Blood Count 11.5 T/CUMM (4-12)
[2018-08-02 05:26] LABS: Calcium 8.8 MG/DL (8.5-10.1); Osmolality,Calculated 312.7 MOS/KG (273-304); Potassium 3.7 MMOL/L (3.5-5.1)
[2018-08-02] MEDS: ALBUTEROL/IPRATROPIUM 3 ML NEB RESP TX SCH ×3 (07:11→19:44)
[2018-08-02] MEDS: THIAMINE 200 MG/2 ML VIAL IV SCH (08:20)
[2018-08-02] MEDS: FUROSEMIDE 20 MG/2 ML VIAL IV SCH (08:25)
[2018-08-02] MEDS: LOSARTAN 50 MG TABLET PO SCH (08:30)
[2018-08-02] MEDS: POTASSIUM CHLORIDE 20 MEQ/15 ML UDCUP PER TUBE PRN (08:30)
[2018-08-02] MEDS: METOPROLOL TARTRATE 25 MG TABLET PO SCH ×2 (08:30→20:21)
[2018-08-02] MEDS: LANSOPRAZOLE ODT 30 MG TABLET PER TUBE SCH (08:31)
[2018-08-02] MEDS: FOLIC ACID 1 MG TABLET PER TUBE SCH (08:31)
[2018-08-02] MEDS: CLOPIDOGREL 75 MG TABLET PO SCH (08:31)
[2018-08-02] MEDS: DILTIAZEM 30 MG TABLET PO SCH ×3 (08:31→20:20)
[2018-08-02] MEDS: ASPIRIN CHEW 81 MG TABLET PO SCH (08:34)
[2018-08-02] MEDS: CHOLECALCIFEROL 1,000 UNIT TABLET PO SCH (08:35)
[2018-08-02] MEDS: DORZOLAMIDE/TIMOLOL OPH SOLN 10 ML BOTTLE BOTH EYES SCH ×2 (08:45→20:21)
[2018-08-02] MEDS: glipiZIDE 10 MG TABLET PER TUBE SCH ×2 (10:01→15:50)
[2018-08-02] MEDS: PROPOFOL 1,000 MG/100 ML BOTTLE IV SCH ×2 (11:17→22:26)
[2018-08-02] MEDS: INSULIN GLARGINE 100 UNIT/ML SUBCUT SCH (20:30)
[2018-08-02] MEDS: LATANOPROST 0.005% OPH SOLN 2.5 ML BOTTLE BOTH EYES SCH (21:02)
[2018-08-03] MEDS: INSULIN REGULAR 100 UNIT/ML SUBCUT SCH ×6 (01:07→21:33)
[2018-08-03] MEDS: PIPERACILLIN/TAZOBACTAM 3,375 MG in SODIUM CHLORIDE 0.9% 100 ML IV SCH ×3 (01:08→16:09)
[2018-08-03] MEDS: HALOPERIDOL 5 MG/ML AMP IV SCH ×4 (01:09→21:33)
[2018-08-03 04:02] LABS: ABG Base Excess 7.5 MMOL/L (-2.5-2.5); ABG HCO3 31.3 MMOL/L (20-26); ABG PCO2 42.2 MM HG (35-48); ABG PH 7.485 (7.35-7.45); ABG TCO2 27.1 MMOL/L (23-27)
[2018-08-03 05:13] LABS: Basophils % 0.2 % (0.0-0.8); Hematocrit 41.5 VOL% (42.0-52.0); Hemoglobin 13.6 GM/DL (14.0-18.0); Immature Granulocytes Absolute 0.45 #; Lymphocytes # 1.6 10*3/uL (1.4-4.0); Lymphocytes % 6.9 % (21.2-54.2); Mean Corpuscular HGB Conc 32.8 GM/DL (32-36); Mean Corpuscular Hemoglobin 32 PG (27-34); Mean Corpuscular Volume 96.3 FL (87-102); Mean Platelet Volume 12.3 FL (9.6-12.0); Monocytes # 2.2 10*3/uL (0.11-0.8); Monocytes % 9.7 % (1.7-12.7); NRBC # 0.02 10*3/uL; Neutrophils # 18.4 10*3/uL (1.4-7.4); Neutrophils % 81.2 % (38.7-73.9); Platelet Count 185 T/CUMM (130-400); Red Blood Count 4.31 MC/CUMM (3.8-5.5); Red Cell Distribution Width 13.8 % (9.3-17.3); White Blood Count 22.6 T/CUMM (4-12)
[2018-08-03 05:33] LABS: Lymphocytes 11 % (20-55); Platelet Estimate Normal; Segmented Neutrophils 84 % (50-85); Total Cells Counted 100
[2018-08-03 05:34] LABS: Anisocytosis Slight; Macrocytosis Slight
[2018-08-03 05:39] LABS: Calcium 8.8 MG/DL (8.5-10.1); Osmolality,Calculated 312.4 MOS/KG (273-304)
[2018-08-03] MEDS: ALBUTEROL/IPRATROPIUM 3 ML NEB RESP TX SCH ×3 (07:05→19:02)
[2018-08-03] MEDS ORDERED: AMIODARONE INJ 450 MG in DEXTROSE 5% 241 ML IV SCH (07:30)
[2018-08-03] MEDS ORDERED: AMIODARONE INJ 150 MG in DEXTROSE 5% 100 ML IV ONE (07:30)
[2018-08-03] MEDS: ASPIRIN CHEW 81 MG TABLET PO SCH (08:04)
[2018-08-03] MEDS: METOPROLOL TARTRATE 25 MG TABLET PO SCH ×2 (08:05→20:21)
[2018-08-03] MEDS: CLOPIDOGREL 75 MG TABLET PO SCH (08:05)
[2018-08-03] MEDS: CHOLECALCIFEROL 1,000 UNIT TABLET PO SCH (08:05)
[2018-08-03] MEDS: LANSOPRAZOLE ODT 30 MG TABLET PER TUBE SCH (08:05)
[2018-08-03] MEDS: DILTIAZEM 30 MG TABLET PO SCH ×3 (08:05→20:21)
[2018-08-03] MEDS: FOLIC ACID 1 MG TABLET PER TUBE SCH (08:05)
[2018-08-03] MEDS: LOSARTAN 50 MG TABLET PO SCH (08:05)
[2018-08-03] MEDS: glipiZIDE 10 MG TABLET PER TUBE SCH ×2 (08:05→16:09)
[2018-08-03] MEDS: methylPREDNISolone SOD SUC 125 MG/2 ML VIAL IV SCH ×2 (08:08→20:20)
[2018-08-03] MEDS: THIAMINE 200 MG/2 ML VIAL IV SCH (08:15)
[2018-08-03] MEDS: FUROSEMIDE 20 MG/2 ML VIAL IV SCH (08:18)
[2018-08-03] MEDS: dilTIAZem Drip 125 MG/125 ML PREMIX IV SCH (08:21)
[2018-08-03] MEDS: PROPOFOL 1,000 MG/100 ML BOTTLE IV SCH (08:26)
[2018-08-03] MEDS: DORZOLAMIDE/TIMOLOL OPH SOLN 10 ML BOTTLE BOTH EYES SCH ×2 (08:27→20:21)
[2018-08-03] MEDS: ENOXAPARIN 40 MG/0.4 ML SYRINGE SUBCUT SCH (09:23)
[2018-08-03 11:35] LABS: ABG Base Excess 9.6 MMOL/L (-2.5-2.5); ABG HCO3 34.4 MMOL/L (20-26); ABG Oxygen Saturation 97.3 % (95-100); ABG PCO2 46.3 MM HG (35-48); ABG PH 7.489 (7.35-7.45); ABG PO2 95.1 MM HG (80-95); ABG TCO2 35.8 MMOL/L (23-27)
[2018-08-03 13:12] LABS: ABG Base Excess 9.1 MMOL/L (-2.5-2.5); ABG HCO3 32.8 MMOL/L (20-26); ABG Oxygen Saturation 96.8 % (95-100); ABG PCO2 38.4 MM HG (35-48); ABG PH 7.534 (7.35-7.45); ABG PO2 80.2 MM HG (80-95); ABG TCO2 27.4 MMOL/L (23-27)
[2018-08-03] MEDS: AMIODARONE INJ 450 MG in DEXTROSE 5% 241 ML IV SCH (16:03)
[2018-08-03] MEDS: INSULIN GLARGINE 100 UNIT/ML SUBCUT SCH (20:21)
[2018-08-03] MEDS: LATANOPROST 0.005% OPH SOLN 2.5 ML BOTTLE BOTH EYES SCH (20:21)
[2018-08-04] MEDS: PIPERACILLIN/TAZOBACTAM 3,375 MG in SODIUM CHLORIDE 0.9% 100 ML IV SCH ×3 (00:05→15:53)
[2018-08-04] MEDS: INSULIN REGULAR 100 UNIT/ML SUBCUT SCH ×6 (00:12→23:11)
[2018-08-04] MEDS: HALOPERIDOL 5 MG/ML AMP IV SCH ×4 (02:15→23:10)
[2018-08-04] MEDS: dilTIAZem Drip 125 MG/125 ML PREMIX IV SCH (02:17)
[2018-08-04 03:49] LABS: ABG Base Excess 7.1 MMOL/L (-2.5-2.5); ABG HCO3 30.8 MMOL/L (20-26); ABG Oxygen Saturation 95.7 % (95-100); ABG PCO2 39.9 MM HG (35-48); ABG PH 7.497 (7.35-7.45); ABG PO2 77.5 MM HG (80-95); ABG TCO2 26.2 MMOL/L (23-27); Allen Test Positive
[2018-08-04 04:06] LABS: Basophils % 0.1 % (0.0-0.8); Hematocrit 42.4 VOL% (42.0-52.0); Hemoglobin 13.7 GM/DL (14.0-18.0); Immature Granulocytes % 1.7 %; Immature Granulocytes Absolute 0.46 #; Lymphocytes # 1.4 10*3/uL (1.4-4.0); Lymphocytes % 5.2 % (21.2-54.2); Mean Corpuscular HGB Conc 32.3 GM/DL (32-36); Mean Corpuscular Hemoglobin 31 PG (27-34); Mean Corpuscular Volume 95.7 FL (87-102); Mean Platelet Volume 12.5 FL (9.6-12.0); Monocytes # 2.2 10*3/uL (0.11-0.8); Neutrophils # 22.9 10*3/uL (1.4-7.4); Platelet Count 194 T/CUMM (130-400); Red Blood Count 4.43 MC/CUMM (3.8-5.5); White Blood Count 26.9 T/CUMM (4-12)
[2018-08-04 04:12] LABS: Calcium 8.5 MG/DL (8.5-10.1); Osmolality,Calculated 304.7 MOS/KG (273-304); Potassium 3.8 MMOL/L (3.5-5.1)
[2018-08-04 04:23] LABS: Prealbumin 29.9 MG/DL (20-40)
[2018-08-04 04:55] LABS: Hypochromasia 1+
[2018-08-04 04:56] LABS: Macrocytosis Slight; Platelet Estimate Adequate
[2018-08-04] MEDS: ALBUTEROL/IPRATROPIUM 3 ML NEB RESP TX SCH ×3 (07:28→20:16)
[2018-08-04] MEDS: PROPOFOL 1,000 MG/100 ML BOTTLE IV SCH (07:32)
[2018-08-04] MEDS: AMIODARONE INJ 450 MG in DEXTROSE 5% 241 ML IV SCH ×2 (07:32→20:05)
[2018-08-04] MEDS: methylPREDNISolone SOD SUC 125 MG/2 ML VIAL IV SCH ×2 (08:48→23:10)
[2018-08-04] MEDS: glipiZIDE 10 MG TABLET PER TUBE SCH ×2 (08:48→15:53)
[2018-08-04] MEDS: ASPIRIN CHEW 81 MG TABLET PO SCH (08:50)
[2018-08-04] MEDS: AMIODARONE 200 MG TABLET PO SCH ×2 (08:51→23:11)
[2018-08-04] MEDS: ENOXAPARIN 40 MG/0.4 ML SYRINGE SUBCUT SCH (08:51)
[2018-08-04] MEDS: DORZOLAMIDE/TIMOLOL OPH SOLN 10 ML BOTTLE BOTH EYES SCH ×2 (08:51→23:12)
[2018-08-04] MEDS: LOSARTAN 50 MG TABLET PO SCH ×2 (08:51→23:11)
[2018-08-04] MEDS: FOLIC ACID 1 MG TABLET PER TUBE SCH (08:51)
[2018-08-04] MEDS: METOPROLOL TARTRATE 25 MG TABLET PO SCH ×2 (08:51→23:11)
[2018-08-04] MEDS: LANSOPRAZOLE ODT 30 MG TABLET PER TUBE SCH (08:52)
[2018-08-04] MEDS: FUROSEMIDE 20 MG/2 ML VIAL IV SCH (08:52)
[2018-08-04] MEDS: CLOPIDOGREL 75 MG TABLET PO SCH (08:52)
[2018-08-04] MEDS: CHOLECALCIFEROL 1,000 UNIT TABLET PO SCH (09:02)
[2018-08-04] MEDS: THIAMINE 200 MG/2 ML VIAL IV SCH (09:03)
[2018-08-04] MEDS ORDERED: AMIODARONE INJ 150 MG in DEXTROSE 5% 100 ML IV ONE (18:58)
[2018-08-04] MEDS ORDERED: AMIODARONE 150 MG/3 ML VIAL ONE (19:00)
[2018-08-04] MEDS: INSULIN GLARGINE 100 UNIT/ML SUBCUT SCH (23:12)
[2018-08-04] MEDS: LATANOPROST 0.005% OPH SOLN 2.5 ML BOTTLE BOTH EYES SCH (23:12)
[2018-08-05] MEDS: INSULIN REGULAR 100 UNIT/ML SUBCUT SCH ×6 (01:50→20:42)
[2018-08-05] MEDS: HALOPERIDOL 5 MG/ML AMP IV SCH ×4 (01:50→20:42)
[2018-08-05] MEDS: PIPERACILLIN/TAZOBACTAM 3,375 MG in SODIUM CHLORIDE 0.9% 100 ML IV SCH ×3 (01:57→16:47)
[2018-08-05] MEDS: ALBUTEROL/IPRATROPIUM 3 ML NEB RESP TX SCH ×3 (07:09→19:07)
[2018-08-05 07:14] LABS: Basophils % 0.1 % (0.0-0.8); Hematocrit 39.8 VOL% (42.0-52.0); Hemoglobin 13.3 GM/DL (14.0-18.0); Immature Granulocytes % 1.9 %; Immature Granulocytes Absolute 0.35 #; Lymphocytes % 10.4 % (21.2-54.2); Mean Corpuscular HGB Conc 33.4 GM/DL (32-36); Mean Corpuscular Hemoglobin 31 PG (27-34); Mean Corpuscular Volume 93.6 FL (87-102); Mean Platelet Volume 12.5 FL (9.6-12.0); Monocytes # 1.3 10*3/uL (0.11-0.8); Monocytes % 7.1 % (1.7-12.7); Neutrophils # 15.1 10*3/uL (1.4-7.4); Neutrophils % 80.5 % (38.7-73.9); Platelet Count 163 T/CUMM (130-400); Red Blood Count 4.25 MC/CUMM (3.8-5.5); Red Cell Distribution Width 13.2 % (9.3-17.3); White Blood Count 18.8 T/CUMM (4-12)
[2018-08-05 07:19] LABS: Albumin 2.7 G/DL (3.4-5.0); Bilirubin,Total 1.7 MG/DL (0.2-1.0); Calcium 8.6 MG/DL (8.5-10.1); Osmolality,Calculated 284.5 MOS/KG (273-304); Potassium 3.8 MMOL/L (3.5-5.1); Total Protein 6.5 G/DL (6.4-8.3)
[2018-08-05] MEDS: methylPREDNISolone SOD SUC 125 MG/2 ML VIAL IV SCH ×2 (08:18→20:40)
[2018-08-05] MEDS: THIAMINE 200 MG/2 ML VIAL IV SCH (08:19)
[2018-08-05] MEDS: FUROSEMIDE 20 MG/2 ML VIAL IV SCH (08:20)
[2018-08-05] MEDS: DORZOLAMIDE/TIMOLOL OPH SOLN 10 ML BOTTLE BOTH EYES SCH ×2 (08:24→20:44)
[2018-08-05] MEDS: AMIODARONE 200 MG TABLET PO SCH ×2 (09:23→20:44)
[2018-08-05] MEDS: CLOPIDOGREL 75 MG TABLET PO SCH (09:23)
[2018-08-05] MEDS: LANSOPRAZOLE ODT 30 MG TABLET PER TUBE SCH (09:23)
[2018-08-05] MEDS: CHOLECALCIFEROL 1,000 UNIT TABLET PO SCH (09:23)
[2018-08-05] MEDS: ASPIRIN CHEW 81 MG TABLET PO SCH (09:23)
[2018-08-05] MEDS: FOLIC ACID 1 MG TABLET PER TUBE SCH (09:24)
[2018-08-05] MEDS: glipiZIDE 10 MG TABLET PER TUBE SCH ×2 (09:24→17:48)
[2018-08-05] MEDS: ROSUVASTATIN 20 MG TABLET PO SCH (09:24)
[2018-08-05] MEDS: ENOXAPARIN 40 MG/0.4 ML SYRINGE SUBCUT SCH (09:28)
[2018-08-05] MEDS: METOPROLOL TARTRATE 25 MG TABLET PO SCH ×2 (09:28→20:44)
[2018-08-05] MEDS: LOSARTAN 50 MG TABLET PO SCH ×2 (09:31→20:44)
[2018-08-05] MEDS: INSULIN GLARGINE 100 UNIT/ML SUBCUT SCH (20:43)
[2018-08-05] MEDS: LATANOPROST 0.005% OPH SOLN 2.5 ML BOTTLE BOTH EYES SCH (20:44)
[2018-08-06] MEDS: PIPERACILLIN/TAZOBACTAM 3,375 MG in SODIUM CHLORIDE 0.9% 100 ML IV SCH ×3 (00:13→16:12)
[2018-08-06] MEDS: INSULIN REGULAR 100 UNIT/ML SUBCUT SCH ×6 (00:14→19:38)
[2018-08-06] MEDS: HALOPERIDOL 5 MG/ML AMP IV SCH ×4 (01:08→19:37)
[2018-08-06 06:28] LABS: Basophils % 0.1 % (0.0-0.8); Hematocrit 36.2 VOL% (42.0-52.0); Hemoglobin 12.3 GM/DL (14.0-18.0); Immature Granulocytes % 1.6 %; Immature Granulocytes Absolute 0.29 #; Lymphocytes # 1.4 10*3/uL (1.4-4.0); Lymphocytes % 7.8 % (21.2-54.2); Mean Corpuscular Hemoglobin 31 PG (27-34); Mean Corpuscular Volume 92.1 FL (87-102); Mean Platelet Volume 12.8 FL (9.6-12.0); Monocytes # 1.5 10*3/uL (0.11-0.8); Monocytes % 8.2 % (1.7-12.7); Neutrophils # 14.9 10*3/uL (1.4-7.4); Neutrophils % 82.3 % (38.7-73.9); Platelet Count 153 T/CUMM (130-400); Red Blood Count 3.93 MC/CUMM (3.8-5.5); Red Cell Distribution Width 12.8 % (9.3-17.3)
[2018-08-06 06:44] LABS: Calcium 8.3 MG/DL (8.5-10.1); Osmolality,Calculated 282.8 MOS/KG (273-304); Potassium 3.7 MMOL/L (3.5-5.1)
[2018-08-06] MEDS: ALBUTEROL/IPRATROPIUM 3 ML NEB RESP TX SCH ×3 (06:56→19:43)
[2018-08-06] MEDS: THIAMINE 200 MG/2 ML VIAL IV SCH ×2 (07:44→11:15)
[2018-08-06] MEDS: FUROSEMIDE 20 MG/2 ML VIAL IV SCH ×2 (07:45→11:14)
[2018-08-06] MEDS: methylPREDNISolone SOD SUC 125 MG/2 ML VIAL IV SCH ×2 (07:46→20:36)
[2018-08-06] MEDS: CHOLECALCIFEROL 1,000 UNIT TABLET PO SCH (08:45)
[2018-08-06] MEDS: AMIODARONE 200 MG TABLET PO SCH ×2 (08:46→20:38)
[2018-08-06] MEDS: LANSOPRAZOLE ODT 30 MG TABLET PER TUBE SCH (08:46)
[2018-08-06] MEDS: glipiZIDE 10 MG TABLET PER TUBE SCH ×2 (08:46→16:13)
[2018-08-06] MEDS: ASPIRIN CHEW 81 MG TABLET PO SCH (08:46)
[2018-08-06] MEDS: ROSUVASTATIN 20 MG TABLET PO SCH (08:47)
[2018-08-06] MEDS: CLOPIDOGREL 75 MG TABLET PO SCH (08:47)
[2018-08-06] MEDS: FOLIC ACID 1 MG TABLET PER TUBE SCH (08:47)
[2018-08-06] MEDS: LOSARTAN 50 MG TABLET PO SCH ×2 (08:47→20:38)
[2018-08-06] MEDS: ENOXAPARIN 40 MG/0.4 ML SYRINGE SUBCUT SCH (08:47)
[2018-08-06] MEDS ORDERED: clonazePAM 0.5 MG TABLET PO PRN (09:12)
[2018-08-06] MEDS: METOPROLOL TARTRATE 25 MG TABLET PO SCH ×2 (11:15→20:38)
[2018-08-06] MEDS: DORZOLAMIDE/TIMOLOL OPH SOLN 10 ML BOTTLE BOTH EYES SCH ×2 (11:16→21:13)
[2018-08-06] MEDS: INSULIN GLARGINE 100 UNIT/ML SUBCUT SCH (20:39)
[2018-08-06] MEDS: LATANOPROST 0.005% OPH SOLN 2.5 ML BOTTLE BOTH EYES SCH (21:37)
[2018-08-07] MEDS: PIPERACILLIN/TAZOBACTAM 3,375 MG in SODIUM CHLORIDE 0.9% 100 ML IV SCH ×3 (00:39→16:10)
[2018-08-07] MEDS: INSULIN REGULAR 100 UNIT/ML SUBCUT SCH ×6 (00:40→21:55)
[2018-08-07] MEDS: HALOPERIDOL 5 MG/ML AMP IV SCH ×4 (01:28→21:51)
[2018-08-07 05:08] LABS: Basophils % 0.2 % (0.0-0.8); Hematocrit 34.4 VOL% (42.0-52.0); Hemoglobin 11.8 GM/DL (14.0-18.0); Immature Granulocytes % 1.8 %; Immature Granulocytes Absolute 0.47 #; Lymphocytes # 1.9 10*3/uL (1.4-4.0); Lymphocytes % 7.2 % (21.2-54.2); Mean Corpuscular HGB Conc 34.3 GM/DL (32-36); Mean Corpuscular Hemoglobin 32 PG (27-34); Mean Platelet Volume 12.8 FL (9.6-12.0); Monocytes # 2.1 10*3/uL (0.11-0.8); Monocytes % 7.7 % (1.7-12.7); Neutrophils # 22.1 10*3/uL (1.4-7.4); Neutrophils % 83.1 % (38.7-73.9); Platelet Count 180 T/CUMM (130-400); Red Blood Count 3.74 MC/CUMM (3.8-5.5); Red Cell Distribution Width 12.8 % (9.3-17.3); White Blood Count 26.6 T/CUMM (4-12)
[2018-08-07 05:32] LABS: Calcium 8.8 MG/DL (8.5-10.1); Osmolality,Calculated 281.4 MOS/KG (273-304); Potassium 3.8 MMOL/L (3.5-5.1)
[2018-08-07] MEDS: ALBUTEROL/IPRATROPIUM 3 ML NEB RESP TX SCH ×3 (07:42→20:01)
[2018-08-07] MEDS: methylPREDNISolone SOD SUC 125 MG/2 ML VIAL IV SCH (08:03)
[2018-08-07] MEDS: THIAMINE 200 MG/2 ML VIAL IV SCH (08:04)
[2018-08-07] MEDS: FUROSEMIDE 20 MG/2 ML VIAL IV SCH (08:04)
[2018-08-07] MEDS ORDERED: INSULIN GLARGINE 100 UNIT/ML SUBCUT SCH (08:26)
[2018-08-07] MEDS ORDERED: DORZOLAMIDE/TIMOLOL OPH SOLN 10 ML BOTTLE BOTH EYES SCH (09:00)
[2018-08-07] MEDS: ENOXAPARIN 40 MG/0.4 ML SYRINGE SUBCUT SCH (10:18)
[2018-08-07] MEDS: LOSARTAN 50 MG TABLET PO SCH ×2 (10:19→21:48)
[2018-08-07] MEDS: CHOLECALCIFEROL 1,000 UNIT TABLET PO SCH (10:19)
[2018-08-07] MEDS: CLOPIDOGREL 75 MG TABLET PO SCH (10:19)
[2018-08-07] MEDS: ROSUVASTATIN 20 MG TABLET PO SCH (10:20)
[2018-08-07] MEDS: LANSOPRAZOLE ODT 30 MG TABLET PER TUBE SCH (10:20)
[2018-08-07] MEDS: ASPIRIN CHEW 81 MG TABLET PO SCH (10:20)
[2018-08-07] MEDS: AMIODARONE 200 MG TABLET PO SCH ×2 (10:21→21:48)
[2018-08-07] MEDS: glipiZIDE 10 MG TABLET PER TUBE SCH ×2 (10:21→16:10)
[2018-08-07] MEDS: METOPROLOL TARTRATE 25 MG TABLET PO SCH ×2 (10:21→21:48)
[2018-08-07] MEDS: FOLIC ACID 1 MG TABLET PER TUBE SCH (10:21)
[2018-08-07] MEDS: predniSONE 20 MG TABLET PO SCH (10:22)
[2018-08-07 12:51] LABS: Macrocytosis Slight; Platelet Estimate Adequate
[2018-08-07] MEDS: LATANOPROST 0.005% OPH SOLN 2.5 ML BOTTLE BOTH EYES SCH (21:48)
[2018-08-08] MEDS: PIPERACILLIN/TAZOBACTAM 3,375 MG in SODIUM CHLORIDE 0.9% 100 ML IV SCH ×2 (01:20→09:39)
[2018-08-08] MEDS: HALOPERIDOL 5 MG/ML AMP IV SCH ×3 (01:27→14:06)
[2018-08-08] MEDS: INSULIN REGULAR 100 UNIT/ML SUBCUT SCH ×4 (01:35→12:09)
[2018-08-08 05:35] LABS: Basophils % 0.1 % (0.0-0.8); Eosinophils # 0.2 10*3/uL (0.0-0.87); Eosinophils % 0.8 % (0.00-10.9); Hematocrit 32.3 VOL% (42.0-52.0); Hemoglobin 10.9 GM/DL (14.0-18.0); Immature Granulocytes % 1.3 %; Immature Granulocytes Absolute 0.31 #; Lymphocytes # 2.9 10*3/uL (1.4-4.0); Lymphocytes % 12.8 % (21.2-54.2); Mean Corpuscular HGB Conc 33.7 GM/DL (32-36); Mean Corpuscular Hemoglobin 31 PG (27-34); Mean Corpuscular Volume 93.1 FL (87-102); Monocytes # 1.9 10*3/uL (0.11-0.8); Monocytes % 8.1 % (1.7-12.7); Neutrophils # 17.7 10*3/uL (1.4-7.4); Neutrophils % 76.9 % (38.7-73.9); Platelet Count 154 T/CUMM (130-400); Red Blood Count 3.47 MC/CUMM (3.8-5.5); Red Cell Distribution Width 13.2 % (9.3-17.3)
[2018-08-08 06:04] LABS: Band Neutrophils 1 % (0-10); Hypochromasia 1+; Lymphocytes 14 % (20-55); Segmented Neutrophils 73 % (50-85); Total Cells Counted 100
[2018-08-08 06:05] LABS: Macrocytosis Slight; Ovalocytes Slight; Platelet Estimate Adequate
[2018-08-08 06:11] LABS: Calcium 8.6 MG/DL (8.5-10.1); Osmolality,Calculated 278.5 MOS/KG (273-304); Potassium 3.8 MMOL/L (3.5-5.1)
[2018-08-08] MEDS: METOPROLOL TARTRATE 25 MG TABLET PO SCH (08:55)
[2018-08-08] MEDS: CHOLECALCIFEROL 1,000 UNIT TABLET PO SCH (08:55)
[2018-08-08] MEDS: predniSONE 20 MG TABLET PO SCH (08:55)
[2018-08-08] MEDS: ROSUVASTATIN 20 MG TABLET PO SCH (08:55)
[2018-08-08] MEDS: LANSOPRAZOLE ODT 30 MG TABLET PER TUBE SCH (08:55)
[2018-08-08] MEDS: LOSARTAN 50 MG TABLET PO SCH (08:55)
[2018-08-08] MEDS: FOLIC ACID 1 MG TABLET PER TUBE SCH (08:55)
[2018-08-08] MEDS: ASPIRIN CHEW 81 MG TABLET PO SCH (08:55)
[2018-08-08] MEDS: glipiZIDE 10 MG TABLET PER TUBE SCH (08:55)
[2018-08-08] MEDS: AMIODARONE 200 MG TABLET PO SCH (08:55)
[2018-08-08] MEDS: CLOPIDOGREL 75 MG TABLET PO SCH (08:55)
[2018-08-08] MEDS: ENOXAPARIN 40 MG/0.4 ML SYRINGE SUBCUT SCH (08:56)
[2018-08-08] MEDS: FUROSEMIDE 20 MG/2 ML VIAL IV SCH (08:56)
[2018-08-08] MEDS: THIAMINE 200 MG/2 ML VIAL IV SCH (08:56)
[2018-08-08] MEDS: ALBUTEROL/IPRATROPIUM 3 ML NEB RESP TX SCH ×2 (08:58→14:35)
[2018-08-08 11:45] VITALS: BP 133/59
== END 2018-08-08 15:43 | disposition home or self-care (01) | DRG 246 ==
LOC: N.ED 21:28 → SUATTDRO 22:42 → N.EDINP 22:42 → N.ICU 23:39 → N.TELES 07-26 16:59 → N.ICU 07-27 14:29 → N.TELEN 08-04 12:56
PROVIDERS: ADMIT Internal Medicine; ATTEND Internal Medicine Nephrology
PROC: CLCCHCL (ICD-10-PCS; 2018-07-27 11:45)